=== PATIENT | male | born 1935 | race African-American/Black ===

== ENCOUNTER 2016-11-16 10:36 | Emergency (ER) | payer MEDICARE ==
[~2016-11-16] VITALS: Ht 182.9 cm; Wt 94.8 kg
--- NOTE | 2016-11-16 10:56 | NUR ---
PATIENT WAS SEEN BY MD FOR C/O BACK PAIN. DC, RX AND FOLLOW UP INSTRUCTIONS GIVEN AND EXPLAINED TO PT WHO STATES HE UNDERSTANDS ALL INSTRUCTIONS.
== END 2016-11-16 10:59 | disposition home or self-care (01) ==
LOC: ER 10:36
DX: M54.5 Low back pain (principal); I10 Essential (primary) hypertension
CPT/HCPCS: A4663